=== PATIENT | female | born 1960 | race African-American/Black ===

== ENCOUNTER → 2016-11-19 | Outpatient (CLI) | payer OTHER ==
--- NOTE | ~2016-11-19 | US5 ---
[facility] A Service of [facility] & [facility] RADIOLOGY TEXT RESULTS PATIENT: GIANNA GASCA LOCATION: [facility] : 62 UNIT #: [id number] AGE: [address]: Kp Curran MD SEX: F ORDER DR: [id number] [address] [id number] O MR#: [id number] Acc #: [id number] NAME: GIANNA GASCA : 1960 SEX: F STUDY DATE/TIME: 11/19/2016 15:03 UNIT: [facility] ROOM: STUDY DESCRIPTION: US Abdominal Complete Attending Physician: Kp Curran M.D. Referring Physician: Kp Curran M.D. Ordering Physician: Kp Curran M.D. Primary Care Physician: Kp Curran M.D. MEDICAL IMAGING REPORT This report is preliminary unless electronic signature is present. EXAM Ultrasound of the abdomen soft tissue INDICATIONS Palpable area within the right abdomen at the mid clavicular line. This has been present for about 3 weeks and is associated with some intermittent pain. TECHNIQUE Suarez-scale and color Doppler sonographic images were obtained through the area concern. FINDINGS This patient has an echogenic area measuring up to 1.4 x 0.7 x 0.9 cm within the area of concern. Clinical significance is uncertain. It is associated with some shadowing. No corresponding abnormality was seen on the patient's CT, which was performed June 14, 2016. IMPRESSION Within the area of concern this patient has a hyperechoic structure measuring up to 1.4 x 0.7 x 0.9 cm, it does appear to be associated with some shadowing and is not definitively a lipoma. Given history, I would suggest further evaluation with CT through the area of concern with a marker to be placed over the area of concern. Dictated by... Catalina Jones M.D. THIS IS AN ELECTRONICALLY VERIFIED REPORT Catalina Jones M.D. at 11/20/2016 5:59 PM AFF/to [facility]. [facility] A Service of [facility] & [facility] RADIOLOGY TEXT RESULTS PATIENT: GIANNA GASCA LOCATION: [facility] : 62 UNIT #: [id number] AGE: [address]: Kp Curran MD SEX: F ORDER DR: TD: 11/19/2016 20:47 JOB #: [id number] MEDICAL IMAGING REPORT Page 1 of 1
== END | disposition home or self-care (01) ==
LOC: SGUS 13:00
DX: R19.00 Intra-abdominal and pelvic swelling, mass and lump, unspecified site (principal)
CPT/HCPCS: 76700